=== PATIENT | female | born 1985 | race Caucasian/White ===

== ENCOUNTER 2017-01-03 09:23 | Emergency (ER) | payer BC ==
--- NOTE | ~2017-01-03 | CR72 ---
[facility] A Service of [facility] & [facility] RADIOLOGY TEXT RESULTS PATIENT: DESTIN RICHARDS LOCATION: [facility] : 87 UNIT #: [id number] AGE: [address]: North Baez MD SEX: F ORDER DR: [id number] [facility] [address] [place], [place] [address] [id number] MR#: [id number] Acc #: [id number] NAME: DESTIN RICHARDS : 1985 SEX: F STUDY DATE/TIME: 01/03/2017 10:22 UNIT: [facility] ROOM: STUDY DESCRIPTION: CR Chest Single View Portable Attending Physician: North Baez M.D. Ordering Physician: North Baez M.D. Primary Care Physician: No Primary Care Physician MEDICAL IMAGING REPORT This report is preliminary unless electronic signature is present EXAM AP portable chest HISTORY Shortness of breath and chest pain beginning yesterday. FINDINGS An AP view is obtained. The cardiovascular configuration is normal, and the lungs are clear. CONCLUSION Negative portable chest. Dictated by... Jos Ruiz M.D. THIS IS AN ELECTRONICALLY VERIFIED REPORT Jos Ruiz M.D. at 01/06/2017 7:16 AM [place] TD: 01/03/2017 11:44 JOB #: [id number] MEDICAL IMAGING REPORT Page 1 of 1 COPY
--- NOTE | ~2017-01-03 | EKG ---
PATIENT: DESTIN RICHARDS UNIT #: [id number] Ventricular Rate: 77 BPM Atrial Rate: 77 BPM P-R Interval: 138 ms QRS Duration: 94 ms Q-T Interval: 394 ms QTC Calculation(Bezet): 445 ms P [place]: 30 degrees Calculated R [place]: 20 degrees Calculated T [place]: 4 degrees Diagnosis Line: Normal sinus rhythm Diagnosis Line: Normal ECG Diagnosis Line: No previous ECGs available Diagnosis Line: Confirmed by ODALYS CARREON MD ([id number]) on Diagnosis Line: 01/04/2017 4:25:53 PM INTERPRETING MD: LAURI BECK
[2017-01-03 11:00] LABS: BASOPHIL% 0.4 % (0-2.5); EOSINOPHIL# 0.1 X10e3 (0-0.7); EOSINOPHIL% 0.8 % (0.0-7.0); HEMATOCRIT 39.9 % (35.0-45.0); HEMOGLOBIN 13.3 gm/dL (12.0-16.0); LYMPHOCYTE# 1.7 X10e3 (1.0-3.5); LYMPHOCYTE% 19.6 % (17.0-45.0); MEAN CELL VOLUME 96.9 FL (83-96); MEAN CORPUSCULAR HEMOGLOBIN 32.3 PG (28-34); MEAN CORPUSCULAR HGB CONC 33.3 g/dL (30-36); MONOCYTE% 11.1 % (3.0-12.0); NEUTROPHIL% 68.1 % (40-75); PLATELET COUNT 266 X10e3 (140-420); RED BLOOD COUNT 4.12 X10e (3.90-5.30); WHITE BLOOD COUNT 8.9 X10e3 (4.0-10.5)
[2017-01-03 11:03] LABS: DIFF IND NO
[2017-01-03 11:34] LABS: BUN/CREATININE RATIO 12.5; CALCIUM SERUM 8.8 mg/dL (8.4-10.2); CREATININE SERUM 0.8 mg/dL (0.6-1.4); POTASSIUM 3.6 mmol/L (3.5-5.1)
== END 2017-01-03 12:06 | disposition home or self-care (01) ==
LOC: CED 09:23
PROVIDERS: Emergency Medicine
DX: J45.901 Unspecified asthma with (acute) exacerbation (principal)
CPT/HCPCS: 36415; 71010; 80048; 84703; 85025; 93005; 96361; 96374; 99284; J2930